=== PATIENT | male | born 1975 | race Two or more races ===

== ENCOUNTER 2017-03-16 09:03 | Inpatient (IN) | payer BC ==
[~2017-03-16] VITALS: Ht 177.8 cm; Wt 73.6 kg
[2017-03-16] VITALS (20 sets, daily range): BP systolic 102–159; BP diastolic 65–89; PULSE 67–88; RESP 10–22; Ht 177.8 cm; Wt 73.6 kg
[~2017-03-16 09:03] MED LIST: BUPIVACAINE 0.5% (SDV) 30 ML, morphine SULFATE (PF) 8 MG, EPINEPHrine 0.3 MG, KETOROLAC... IRR SCH; CEFAZOLIN 2 GM/50 ML (PMX) 50 ML IVPB SCH; DEXAMETHASONE 1 MG TAB PO SCH; GABAPENTIN 300 MG CAP PO SCH; SOD CHLORIDE 0.9% 100 ML, TRANEXAMIC ACID 3,000 MG IRR SCH; TRANEXAMIC ACID 1,000 MG in SOD CHLORIDE 0.9% 100 ML IVPB SCH; traMADol 50 MG TAB PO SCH
--- NOTE | 2017-03-16 10:46 | HPN ---
Date/Time of Note Date/Time of Note DATE: 03/16/17 TIME: 10:46 Interval H&P Admission Note Pt. seen H&P reviewed: No system changes KIERRA NAVARRETE MD Mar 16, 2017 10:46
[2017-03-16] MEDS ORDERED: FENTAnyl 50 MCG/ML VIAL ONE (12:22)
[2017-03-16] MEDS ORDERED: DEXAMETHASONE 4 MG/ML 1 ML INJ ONE (12:22)
[2017-03-16] MEDS ORDERED: CEFAZOLIN 1 GM INJ ONE (12:22)
[2017-03-16] MEDS ORDERED: GLYCOPYRROLATE 0.4 MG INJ ONE (12:22)
[2017-03-16] MEDS ORDERED: PROPOFOL 20 ML ONE (12:22)
[2017-03-16] MEDS ORDERED: ONDANSETRON 4 MG INJ ONE (12:22)
[2017-03-16] MEDS ORDERED: ROCURONIUM 50 MG INJ ONE (12:22)
[2017-03-16] MEDS ORDERED: MIDAZOLAM 1 MG/ML 2 ML INJ ONE (12:22)
[2017-03-16] MEDS ORDERED: NEOSTIGMINE 3 MG/3 ML SYRINGE ONE (12:22)
[2017-03-16] MEDS ORDERED: ROPIVACAINE 0.5 % 30 ML VIAL ONE (12:23)
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
[2017-03-16] MEDS ORDERED: CA CHLORIDE 10% 10 ML SYRINGE ONE (13:59)
[2017-03-16] MEDS ORDERED: THROMBIN 5000 UNIT VIAL ONE (14:05)
[2017-03-16] MEDS ORDERED: OXYCODONE/ACETAMINOPHEN (5/325) TAB PO PRN ×4 (15:00→16:30)
[2017-03-16] MEDS ORDERED: MEPERIDINE 25 MG INJ IV PRN (15:00)
[2017-03-16] MEDS ORDERED: EPHEDrine SULFATE 50 MG/5 ML SYG IV PRN (15:00)
[2017-03-16] MEDS ORDERED: MIDAZOLAM 1 MG/ML 2 ML INJ IV PRN (15:00)
[2017-03-16] MEDS ORDERED: hydrALAzine 20 MG INJ IV PRN (15:00)
[2017-03-16] MEDS ORDERED: LABETALOL HCL 20MG INJ IV PRN (15:00)
[2017-03-16] MEDS ORDERED: HYDROmorphONE (0.2 MG/ML) 10ML SYG IV PRN ×3 (15:00)
[2017-03-16] MEDS ORDERED: ONDANSETRON 4 MG INJ IV PRN ×2 (15:00→16:30)
[2017-03-16] MEDS ORDERED: FENTAnyl 50 MCG/ML VIAL IV PRN ×2 (15:00)
[2017-03-16] MEDS ORDERED: TRIMETHOBENZAMIDE 100 MG/ML VIAL IM PRN (15:00)
[2017-03-16] MEDS ORDERED: DIPHENHYDRAMINE 50 MG INJ IV PRN ×2 (15:00→16:30)
--- NOTE | 2017-03-16 16:13 | OPR ---
Date/Time of Note Date/Time of Note DATE: 03/16/17 TIME: 16:07 Operative Report Procedure Date: Mar 16, 2017 Preoperative Diagnosis Displaced right shoulder glenoid fracture Postoperative Diagnosis Displaced right shoulder glenoid fracture Operation Performed Open reduction with internal fixation of right shoulder glenoid fracture Surgeon: KIERRA NAVARRETE MD Mineral Mixer: LAURY BENJAMIN MD Anesthesia: general Estimated Blood Loss: 50 - 100 ml's Complications: None Pt Condition Post Procedure: stable Disposition: PACU Procedure Description SPACE ENGINEER SURGEON: Laury Benjamin MD was asked to be present at my request. This was as a result of the extensive surgical exposure as well as protection of the neurovascular structures that is required in this procedure. In my opinion, the assistance offered by a technology internship is insufficient and Dr. Benjamin should be compensated for her time PROCEDURE IN DETAIL: Following the administration of general endotracheal anesthesia supplemented by an interscalene block, the patient was then placed in the left lateral decubitus position. An axillary fold was placed and all neurovascular structures were carefully protected. Sterile prep and drape was the right upper extremity and the posterior aspect of the scapula was then undertaken. An extensile incision was then performed across the superior border of the scapular spine and then distally along the medial scapular border. A large flap was then elevated distally and laterally. The deltoid fascia was then identified and incised off the area of the origin on the scapular spine. The deltoid was subsequently lifted over the flap laterally and distally. At this point the medial border of the scapular fracture was noted to be essentially healed with very solid fixation and periosteal callus formation. It should be be noted that there was no significant acuity to the fracture at this point with no significant hematoma or reactive tissue. Further laterally, the interval between the infraspinatus and the teres minor was then developed and the posterior capsule of the shoulder was identified. A capsulotomy was then performed and the humeral head was retracted. The glenoid intra-articular portion was then visualized. The inferior border appeared intact the superior border revealed that the most superior 5-7 mm were tilted slightly in some moderate periosteal changes were noted. The joint was then irrigated and the area elevated back to a relatively anatomic position. Using percutaneous incisions, 2 Acumed screws were then placed parallel to the glenoid from posterior inferior to anterior superior. Good fixation was obtained of the displaced fragment. The joint was then thoroughly irrigated. Following this the deltoid fascia was then approximated using interrupted #2 sutures and reapproximating the deltoid solidly. The subcutaneous tissues were then thoroughly irrigated followed by approximation using 2-0 Vicryl for the deep flap. The skin was then closed using 4-0 Monocryl and a perennial dressing. The patient was then placed in the supine position and extubated. He was placed in a sling. Estimated loss was procedure was 100 cc. Postoperative x-rays will be obtained in the recovery room. KIERRA NAVARRETE MD Mar 16, 2017 16:13
--- NOTE | 2017-03-16 16:14 | PDOCDIS ---
Discharge Instructions DIAGNOSIS Discharge Diagnosis Displaced right shoulder glenoid fracture CONDITION Patient Condition: Good HOME CARE INSTRUCTIONS: Diet Instructions: Regular ACTIVITY: Activity Restrictions: No Restrictions Slowly Increase Activity Keep Limb Elevated Bathing Restrictions: Shower FOLLOW UP/APPOINTMENTS Follow-up Plan 2 weeks postoperatively SCHOOL/WORK RELEASE May return to School/Work with: With Restrictions School/Work Release Comment: 5 pounds tabletop usage for the next 6 weeks. KIERRA NAVARRETE MD Mar 16, 2017 16:14
[2017-03-16] MEDS ORDERED: ACETAMINOPHEN 500 MG TAB PO PRN (16:30)
[2017-03-16] MEDS ORDERED: morphine 4 MG/ML VIAL IV PRN (16:30)
[2017-03-16] MEDS ORDERED: KETOROLAC 15 MG INJ IV PRN (16:30)
[2017-03-16] MEDS: CEFAZOLIN 1 GM/50 ML (PMX) 50 ML IVPB SCH ×2 (16:30→23:37)
[2017-03-16] MEDS ORDERED: morphine 2 MG INJ IV PRN (16:30)
[2017-03-16] MEDS ORDERED: MAGNESIUM HYDROXIDE 30ML CUP PO PRN (16:30)
[2017-03-16] MEDS ORDERED: ZOLPIDEM 5 MG TAB PO PRN (16:30)
[2017-03-16] MEDS ORDERED: TRANEXAMIC ACID 1,000 MG in SOD CHLORIDE 0.9% 100 ML IV ONE (16:30)
[2017-03-16] MEDS: FENTAnyl 50 MCG/ML VIAL IV PRN ×2 (16:49→17:05)
--- NOTE | 2017-03-16 18:07 | RADRPT ---
PROCEDURE: XR left shoulder. CLINICAL INDICATION: Post Op Film TECHNIQUE: AP, and Y views of the left shoulder were performed. COMPARISON: No. FINDINGS: There is subcutaneous emphysema over the lateral and superior aspect of the right shoulder with inte rnal fixation pins projecting across the right glenoid labrum. There is a comminuted fracture infer ior to the scapular spine extending laterally into the articular surface of the right glenoid. The c omminuted fracture extends across the scapular spine involving the superior medial right scapula. T he ribs and visible lung villa are normal. The humerus is intact and aligned with the right acetab ulum. There is superior displacement of the lateral end of the right clavicle. IMPRESSION: 1. Postsurgical changes following internal fixation of a comminuted fracture running horizontally be low the scapular spine and into the central articular surface and lower articular surface of the rig ht glenoid. An additional fracture line extends superior to the scapular spine involving the upper m edial portion of the right scapula. 2. Grade 1 tear of the right acromioclavicular ligament with mild degenerative changes around the r ight acromioclavicular joint. RPTAT:AAJJ Physician Billie Date Time Electronically viewed and signed by Physician Billie on 03/16/2017 18:06 /
[2017-03-16] MEDS: DEXAMETHASONE 2 MG TAB PO SCH ×2 (18:26→23:17)
[2017-03-16] MEDS ORDERED: GABAPENTIN 300 MG CAP PO SCH (21:00)
[2017-03-16] MEDS: SENNA/DOCUSATE NA (8.6MG/50MG) TAB PO SCH (21:10)
[2017-03-17 00:03] VITALS: BP 117/67; RESP 22
[2017-03-17] MEDS: DEXAMETHASONE 2 MG TAB PO SCH ×2 (05:41→12:00)
--- NOTE | 2017-03-17 06:54 | PN ---
Date/Time of Note Date/Time of Note DATE: 03/17/17 TIME: 06:53 24 hour Interval Summary Patient is awake and alert with minimal pain this morning. Physical Exam Physical examination of the right upper extremity reveals that he is neurologically intact. His skin is intact. He has no signs of DVT. The wound is clean and dry. Vital Signs Date Time Temp Pulse Resp B/P Pulse Ox O2 Delivery O2 Flow Rate FiO2 03/17/17 00:03 98.0 72 22 117/67 100 03/16/17 18:00 Room Air 03/16/17 16:13 2.0 Intake and Output 03/16/17 03/16/17 03/17/17 15:00 23:00 07:00 Intake Total 2610 ml 800 ml Balance 2610 ml 800 ml VTE Prophylaxis VTE Prophylaxis Intervention: anti-embolic stocking Lines/Catheters IV Catheter Type: Saline Lock Koch in Place: No Assessment/Plan Assessment/Plan Assessment: The patient will be seen this morning by physical therapy. Following that, he will be discharged home. Medications Medications Home Meds No Active Prescriptions or Reported Meds KIERRA NAVARRETE MD Mar 17, 2017 06:54
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
[2017-03-17 08:35] VITALS: BP 101/55; RESP 22
[2017-03-17] MEDS: CEFAZOLIN 1 GM/50 ML (PMX) 50 ML IVPB SCH (08:41)
[2017-03-17] MEDS: SENNA/DOCUSATE NA (8.6MG/50MG) TAB PO SCH (08:42)
[2017-03-17] MEDS ORDERED: ASPIRIN 81 MG TAB PO SCH (09:00)
== END 2017-03-17 12:29 | disposition home or self-care (01) | DRG 517 ==
LOC: REC 10:20 → EDSTATUS 12:00 → MS1 17:53
PROVIDERS: ADMIT Orthopaedic Surgery; ATTEND Orthopaedic Surgery
PROC: 0PS504Z Reposition Right Scapula with Internal Fixation Device, Open Approach (ICD-10-PCS; 2017-03-16)
PROC: 0PS704Z Reposition Right Glenoid Cavity with Internal Fixation Device, Open Approach (ICD-10-PCS; principal; 2017-03-16 15:00)
DX: S42.141A Displaced fracture of glenoid cavity of scapula, right shoulder, initial encounter for closed fracture (principal); F17.210 Nicotine dependence, cigarettes, uncomplicated; V89.2XXA Person injured in unspecified motor-vehicle accident, traffic, initial encounter; Y93.89 Activity, other specified; Y92.410 Unspecified street and highway as the place of occurrence of the external cause; Y99.8 Other external cause status
CPT/HCPCS: 86999; 97166; J0171; J0690; J0735; J1100; J1885; J2250; J2274; J2405; J2710; J2795; J3010; J3370